=== PATIENT | female | born 1960 | race American Indian/Alaskan Native ===

== ENCOUNTER 2018-08-24 21:11 | Emergency (ER) | payer SELFPAY ==
--- NOTE | 2018-08-24 21:42 | Emergency Department Report ---
Chief Complaint: Dizziness Stated Complaint: HIGH BLOOD SUGAR/DIZZY/FREQ URINATION Time Seen by Provider: 08/24/18 21:37 - HPI History of Present Illness: This is a 58 y.o. F. that presents to the ER with urinary frequency and metallic taste x 1 day. PMH HTN Patient family member checked glucose today and it was greater than 600. Patient just came from [facility] 1 week ago. - Exam Vital Signs: Vital Signs 08/24/18 21:38 Temperature 97.5 F L Pulse Rate 85 Respiratory 18 Rate Blood Pressure 167/111 O2 Sat by Pulse 96 Oximetry MSE screening note: Focused history and physical exam performed. Due to findings the following was ordered: Labs ED Disposition for MSE Condition: Stable
[2018-08-24 22:02] LABS: Hematocrit 41.5 % (30.3-42.9); Hemoglobin 14.4 gm/dl (10.1-14.3); Mean Corpuscular HGB Conc 35 % (30-34); Mean Corpuscular Volume 81 fl (79-97); Platelet Count 264 K/mm3 (140-440); Red Blood Count 5.11 M/mm3 (3.65-5.03); Red Cell Distribution Width 14.8 % (13.2-15.2)
[2018-08-24 22:07] LABS: Bilirubin,Urine NEG (Negative); Blood,Urine NEG (Negative); Color,Urine Straw (Yellow); Mucus,Urine FEW /HPF; Protein,Urine <15 mg/dL mg/dL (Negative); RBC,Urine < 1.0 /HPF (0.0-6.0); Urobilinogen,Urine < 2.0 mg/dL (<2.0); WBC,Urine < 1.0 /HPF (0.0-6.0)
[2018-08-24 22:22] LABS: Albumin 4.5 g/dL (3.9-5); Calcium 10.2 mg/dL (8.4-10.2)
[2018-08-24] MEDS ORDERED: NACL 0.9% 1000 ML 1,000 ML IV ONE ×2 (22:52)
[2018-08-24] MEDS ORDERED: HumuLIN R IV ONE (22:52)
--- NOTE | 2018-08-24 23:49 | Emergency Department Report ---
ED Dizziness HPI - General Chief Complaint: Dizziness Stated Complaint: HIGH BLOOD SUGAR/DIZZY/FREQ URINATION Time Seen by Provider: 08/24/18 21:37 Source: patient Mode of arrival: Ambulatory Limitations: No Limitations - History of Present Illness Initial Comments: Mrs. Hernandez is a 58-year-old [place] female with past medical history of hypertension who presents with lightheadedness and dizziness. She has had thirst, urinary frequency. No previous diagnosis of diabetes. However her daughter checked her blood sugar. The glucometer read high. She has been in [facility] visiting family for the past week. She plans to stay in visit for the next 5 months. Medications include amlodipine. MD Complaint: dizziness, lightheadedness -: Gradual, week(s) (1) Timing: gradual onset Description: lightheadedness History of Same: No History of Trauma: No Severity: mild Improves With: nothing Worsens With: nothing - Related Data Previous Rx's Medication Instructions Recorded Last Taken Type metFORMIN [Glucophage] 500 mg PO BID #60 tablet 08/24/18 Unknown Rx Allergies Allergy/AdvReac Type Severity Reaction Status Date / Time No Known Allergies Allergy Verified 08/24/18 21:15 ED Review of Systems ROS: Stated complaint: HIGH BLOOD SUGAR/DIZZY/FREQ URINATION Other details as noted in HPI Comment: All other systems reviewed and negative Constitutional: denies: fever, malaise Respiratory: denies: cough Cardiovascular: denies: chest pain ED Past Medical Hx - Past Medical History Previous Medical History?: Yes Hx Hypertension: Yes - Surgical History Past Surgical History?: No - Social History Smoking Status: Never Smoker Substance Use Type: None - Medications Home Medications: Home Medications Medication Instructions Recorded Confirmed Last Taken Type metFORMIN [Glucophage] 500 mg PO BID #60 tablet 08/24/18 Unknown Rx ED Physical Exam - General Limitations: No Limitations General appearance: alert, in no apparent distress - Head Head exam: Present: atraumatic, normocephalic - Eye Eye exam: Present: normal appearance - ENT ENT exam: Present: mucous membranes moist - Neck Neck exam: Present: normal inspection, full ROM. Absent: tenderness, meningismus - Respiratory Respiratory exam: Present: normal lung sounds bilaterally. Absent: respiratory distress, wheezes, rales, rhonchi - Cardiovascular Cardiovascular Exam: Present: regular rate, normal rhythm, normal heart sounds. Absent: systolic murmur, diastolic murmur, rubs, gallop - GI/Abdominal GI/Abdominal exam: Present: soft, normal bowel sounds. Absent: distended, tenderness, guarding, rebound - Extremities Exam Extremities exam: Present: normal inspection - Back Exam Back exam: Present: normal inspection - Neurological Exam Neurological exam: Present: alert, oriented X3 - Psychiatric Psychiatric exam: Present: normal affect, normal mood - Skin Skin exam: Present: warm, dry, intact, normal color. Absent: rash ED Course Vital Signs 08/24/18 21:38 Temperature 97.5 F L Pulse Rate 85 Respiratory 18 Rate Blood Pressure 167/111 O2 Sat by Pulse 96 Oximetry ED Medical Decision Making - Lab Data Result diagrams: 08/24/18 21:49 08/24/18 21:49 Laboratory Results - last 24 hr 08/24/18 08/24/18 08/24/18 21:33 21:49 21:49 WBC 7.5 RBC 5.11 H Hgb 14.4 H Hct 41.5 MCV 81 MCH 28 MCHC 35 H RDW 14.8 Plt Count 264 Sodium 132 L Potassium 4.5 Chloride 90.5 L Carbon Dioxide 26 Anion Gap 20 BUN 34 H Creatinine 1.5 H Estimated GFR 36 BUN/Creatinine Ratio 23 Glucose 538 H* POC Glucose 487 H Calcium 10.2 Total Bilirubin 0.30 AST 5 ALT 7 Alkaline Phosphatase 91 Total Protein 7.9 Albumin 4.5 Albumin/Globulin Ratio 1.3 Urine Color Urine Turbidity Urine pH Ur Specific [place] Urine Protein Urine Glucose (UA) Urine Ketones Urine Blood Urine Nitrite Urine Bilirubin Urine Urobilinogen Ur Leukocyte Esterase Urine WBC (Auto) Urine RBC (Auto) U Epithel Cells (Auto) Urine Mucus 08/24/18 Unknown WBC RBC Hgb Hct MCV MCH MCHC RDW Plt Count Sodium Potassium Chloride Carbon Dioxide Anion Gap BUN Creatinine Estimated GFR BUN/Creatinine Ratio Glucose POC Glucose Calcium Total Bilirubin AST ALT Alkaline Phosphatase Total Protein Albumin Albumin/Globulin Ratio Urine Color Straw Urine Turbidity Clear Urine pH 5.0 Ur Specific [place] 1.022 Urine Protein <15 mg/dl Urine Glucose (UA) >=500 Urine Ketones Tr Urine Blood Neg Urine Nitrite Neg Urine Bilirubin Neg Urine Urobilinogen < 2.0 Ur Leukocyte Esterase Neg Urine WBC (Auto) < 1.0 Urine RBC (Auto) < 1.0 U Epithel Cells (Auto) 1.0 Urine Mucus Few - Medical Decision Making Mrs. Hernandez presents with new onset diabetes, hyperglycemia. I suspect prerenal insult. Elevated BUN. Elevated creatinine. She received 2 L IV fluids normal saline in the ED. Trace ketones noted on urine with anion gap of 20. Bicarbonate 26. Given IV regular insulin. Discharged home with prescription for metformin and referral to [facility]. Critical care attestation.: If time is entered above; I have spent that time in minutes in the direct care of this critically ill patient, excluding procedure time. ED Disposition Clinical Impression: New onset type 2 diabetes mellitus, Hyperglycemia Disposition: [id number] TO HOME OR SELFCARE Is pt being admited?: No Does the pt Need Aspirin: No Condition: Stable Instructions: Diabetes Mellitus Type 2 in Adults (ED) Prescriptions: metFORMIN [Glucophage] 500 mg PO BID #60 tablet Referrals: [facility] [Outside] - 3-5 Days
[2018-08-25 01:11] VITALS: BP 172/94
== END 2018-08-25 01:13 | disposition home or self-care (01) ==
LOC: EDBD → ED 21:11
DX: E11.65 Type 2 diabetes mellitus with hyperglycemia (principal); I10 Essential (primary) hypertension
CPT/HCPCS: 36415; 80053; 81001; 82962; 85027; 96361; 96374; 99283; J7030; J1815